=== PATIENT | male | born 1950 | race Caucasian/White ===

== ENCOUNTER 2024-05-28 18:12 | Inpatient (IN) | payer OTHER ==
[~2024-05-28] VITALS: Ht 188 cm; Wt 67.5 kg
[2024-05-28] MEDS ORDERED: MEMANTINE HCL10 MG PO (18:27)
[2024-05-28] MEDS ORDERED: RIVASTIGMINE TAR6 MG PO (18:27)
[2024-05-28] MEDS ORDERED: ZOLOFT 50MG50 MG PO (18:27)
[2024-05-28] MEDS ORDERED: Acetaminophen 325 MG TAB PO PRN (18:45)
[2024-05-28] MEDS ORDERED: Polyethylene Glycol 3350 Powder 17 GM PACKET PO PRN (18:45)
--- NOTE | 2024-05-28 18:50 | NUR ---
Received report from Marilyn JOSHI
[2024-05-28 19:00] VITALS: BP 127/80
[2024-05-28] MEDS ORDERED: Famotidine 20 MG TAB PO PRN (19:00)
[2024-05-28] MEDS ORDERED: Docusate Sodium 100 MG CAP PO PRN (19:00)
[2024-05-28] MEDS ORDERED: Acetaminophen 500 MG TAB PO SCH (19:42)
--- NOTE | 2024-05-28 20:00 | NUR ---
Pt is laying in a curled position in bed with his knees drawn up to his chest and head down. Remigio is at bedisde giving him drinks of water. reports she belives pt is wet and will required changing. Pt is resistive to care and requires 2 staff to help change and provide incontinet cares. Pt answers to own name but is unable to answer any other questions correctly. Pt is easily distracted when given something to hold on to. No skin breakdown notied, but there is a red area that is blanchable on coccyx. No abnormal findings with nursing assessment. Pt is repositioned and call light in reach of pt. Bed alarms on for safety. remaines at bedside when staff leaves room. Encouraged to let nurse know if any needs arise.
[2024-05-28] MEDS ORDERED: Rivastigmine 1.5 MG CAP PO SCH (21:00)
[2024-05-28] MEDS ORDERED: Ibuprofen 200 MG TAB PO SCH (22:42)
--- NOTE | 2024-05-29 06:13 | NUR ---
Pt has rested off and on through out the night. Staff has been in every 2 hours to turn and change pt due to incontinent. No pain noted during the shift. Call light in reach of pt.
--- NOTE | 2024-05-29 07:00 | NUR ---
RESUMED CARE FROM MADELYN HO.
[2024-05-29 07:42] VITALS: BP 134/69
[2024-05-29] MEDS ORDERED: Memantine 5 MG TAB PO SCH (09:00)
[2024-05-29] MEDS ORDERED: Sertraline 50 MG TAB PO SCH (09:00)
--- NOTE | 2024-05-29 09:10 | NUR ---
PATIENT SITTING IN RECLINER EATING BREAKFAST WITH NANABELLE NOGUERA. THIS RN COMPLETED AM ASSESSMENT AND PROVIDED AM MEDICATIONS CRUSHED IN APPLESAUCE. PATIENT PLEASANT, UNABLE TO ANSWER QUESTIONS APPROPRIATELY. MINIMALLY VERBAL. NEEDS MET. PATIENT REMAINS WITH ANNABELLE NOGUERA FINISHING BREAKFAST UPON DEPARTURE FROM ROOM.
[2024-05-29 09:18] LABS: BASO # 0.03 K/mm3 (0.02-0.10); EOS # 0.31 K/mm3 (0.04-0.40); EOS % 4.4 % (0.0-4.0); HEMATOCRIT 38.8 % (42.0-52.0); HEMOGLOBIN 12.9 g/dL (13.5-18.0); LYMPH# 1.81 K/mm3 (1.50-4.00); MEAN CELL VOLUME 95 fl (78-100); MEAN CORPUSCULAR HEMOGLOBIN 32 pg (27-31); MEAN CORPUSCULAR HGB CONC 33 g/dL (33-37); MEAN PLATELET VOLUME 9.4 fl (7.4-10.4); MONO # 0.43 K/mm3 (0.20-0.80); NEU # 4.09 K/mm3 (1.40-6.50); PLATELET COUNT 239 K/mm3 (130-400); RED CELL DISTRIBUTION WIDTH 12.9 % (11.5-14.5); WHITE BLOOD COUNT 7.1 K/mm3 (4.8-10.8)
[2024-05-29 09:44] LABS: ALBUMIN 3.6 g/dL (3.4-4.8)
[2024-05-29] MEDS ORDERED: Acetaminophen 500 MG TAB PO PRN (09:45)
[2024-05-29] MEDS ORDERED: Ibuprofen 200 MG TAB PO PRN (09:45)
[2024-05-29 09:46] LABS: CALCIUM 9.1 mg/dL (8.3-10.5)
[2024-05-29 09:47] LABS: TOTAL PROTEIN 6.8 g/dL (6.2-8.1)
[2024-05-29 09:49] LABS: TOTAL BILIRUBIN 0.4 mg/dL (0.2-1.2)
--- NOTE | 2024-05-29 14:09 | NUR ---
REPORT TO MADELYN PARRY.
--- NOTE | 2024-05-29 18:40 | NUR ---
Received report from Ching JOSHI
[2024-05-29 19:00] VITALS: BP 114/56
--- NOTE | 2024-05-29 19:00 | NUR ---
Pt laying in bed on his right side. Nursing assessment preformed with no abnormal findings. Pt remains confused but coppertive with staff during the assessment. Call light in reach of the pt. Bed alarms on for safety.
[2024-05-30 07:15] VITALS: BP 136/74; BP 148/73
--- NOTE | 2024-05-30 16:35 | NUR ---
PT HAS BEEN PLEASANTLY CONFUSED PER BASELINE TODAY. PT HAS A GOOD APPETITE AND IS EATING MOST OF HIS MEALS. PT TALKATIVE. HE SPEAKS 1-2 WORDS AT A TIME AND HAS DIFFICULTY FINDING HIS WORDS. COMMUNICATION IS NONSENSICAL AND HE IS UNALBE UNDERSTAND SIMPLE INSTRUCTIONS. PT IS INCONTINENT OF BOWEL AND BLADDER. PT IS REPOSITIONED EVERY COUPLE HOURS BUT IS ABLE TO SHIFT HIMSELF. PT REQUIRES FEEDING AND MAX ASSISTANCE WITH ALL ADLS. PT TRANSFERS WITH GAITBELT AND MAX ASSIST OF 2 PEOPLE. PT DOES NOT DO WELL WITH A WALKER DUE TO NOT UNDERSTANDING WHAT IT IS OR HOW TO USE IT EVEN WITH VERBAL QUEING. PT DOES NOT EXHIBIT SIGNS OF DISCOMFORT. SKIN WARM AND DRY. PTS CALLED EARLIER FOR AN UPDATE. SHE DOES NOT PLAN TO VISIT TODAY AND WOULD LIKE TO BE UPDATED WITH ANY CHANGES.
[2024-05-30 19:00] VITALS: BP 122/65
--- NOTE | 2024-05-30 21:09 | NUR ---
PT ALERT AND CONFUSED. GIVEN MEDS CRUSHED IN APPLESAUCE. LUNGS DIM DUE TO PT UNABLE TO FOLLOW DIRECTIONS OF DEEP BREATH. ABD SOFT AND NON TENDER. SKIN WARM AND DRY. DENIES PAIN. INCONTINENT TO BOWEL AND BLADDER.
[2024-05-31 07:30] VITALS: BP 166/100
--- NOTE | 2024-05-31 09:04 | NUR ---
PT ATE A CONTAINER OF APPLE SAUCE AND DRANK A CHOCOLATE ENSURE.
--- NOTE | 2024-05-31 14:29 | NUR ---
PT EVAL DONE BY BREANNE; SEE PATIENT PAPER CHART FOR NOTES
[2024-05-31 19:40] VITALS: BP 142/74
--- NOTE | 2024-05-31 22:41 | NUR ---
PT ALERT AND ORIENTED X0, PT INCONTINENT OF BOWEL AND URINE. PT DOES NOT DISPLAY ANY FORM OF PAIN. PT ASSESSED AND TOOK MEDICATIONS IN APPLESAUCE WITHOUT COMPLICATION. PT NOW RESTING IN BED WITH ALL FOUR SIDE RAILS UP FOR PT SAFETY. PT GIVEN SIPS OF WATER AFTER APPLESUACE.
[2024-06-01 07:23] VITALS: BP 116/55
[2024-06-01 19:00] VITALS: BP 105/74
--- NOTE | 2024-06-01 20:51 | NUR ---
This RN went to pull patients evening medication rivastigmine 6mg from the pyxis and it was not available. this RN notified provider JUNIE Avalos and she said that it was okay fro pt to miss tonight dose. This RN notified MADELYN Mak for restocking of med in AM.
--- NOTE | 2024-06-02 07:00 | NUR ---
RESUMED CARE FROM MADELYN HIKNLE.
[2024-06-02 07:15] VITALS: BP 125/61
[2024-06-02 07:49] LABS: BASO # 0.04 K/mm3 (0.02-0.10); EOS # 0.13 K/mm3 (0.04-0.40); EOS % 1.8 % (0.0-4.0); HEMATOCRIT 39.7 % (42.0-52.0); LYMPH# 1.45 K/mm3 (1.50-4.00); MEAN CELL VOLUME 95 fl (78-100); MEAN CORPUSCULAR HEMOGLOBIN 31 pg (27-31); MEAN CORPUSCULAR HGB CONC 33 g/dL (33-37); MEAN PLATELET VOLUME 9.1 fl (7.4-10.4); MONO # 0.51 K/mm3 (0.20-0.80); NEU # 4.71 K/mm3 (1.40-6.50); PLATELET COUNT 333 K/mm3 (130-400); RED BLOOD COUNT 4.19 M/mm3 (4.20-5.60); RED CELL DISTRIBUTION WIDTH 13.1 % (11.5-14.5); WHITE BLOOD COUNT 7.1 K/mm3 (4.8-10.8)
[2024-06-02 07:55] LABS: ALBUMIN 3.7 g/dL (3.4-4.8)
[2024-06-02 07:57] LABS: CALCIUM 9.4 mg/dL (8.3-10.5)
[2024-06-02 07:58] LABS: TOTAL PROTEIN 6.5 g/dL (6.2-8.1)
[2024-06-02 08:00] LABS: TOTAL BILIRUBIN 0.3 mg/dL (0.2-1.2)
--- NOTE | 2024-06-02 08:30 | NUR ---
PATIENT SITTING IN RECLINER UPON ARRIVAL TO ROOM, MOSES PCT IN ROOM FEEDING PATIENT BREAKFAST. ASSESSMENT COMPLETED. AM MEDICATIONS PROVIDED WHOLE IN APPLESAUCE. REMAINS WITH ANNABELLE LOPES EATING BREAKFAST UPON DEPARTURE FROM ROOM.
--- NOTE | 2024-06-02 10:15 | NUR ---
AT BEDSIDE, REPORTS PATIENT EATS LARGER PORTIONS AT HOME. THIS RN CALLED TO KITCHEN TO REQUEST DOUBLE PORTIONS OF MEALS MOVING FORWARD. KITCHEN AWARE.
--- NOTE | 2024-06-02 18:55 | NUR ---
REPORT TO ARIN.
[2024-06-02 19:46] VITALS: BP 116/61
[2024-06-03 07:23] VITALS: BP 128/61
--- NOTE | 2024-06-03 08:50 | NUR ---
PT LYING IN BED DURING ASSESMENT. PTS LUNGS ARE DIFFICULT TO ASSESS, PT DOESN'T FOLLWO COMMANDS, PT BREATHES SHALLOW. THIS NURSE DID NOT HEAR ANY ABNORMAL FINDINGS IN PTS UPPER AIRWAY. PTS SKIN IS WARM DRY AND INTACT. THIS NURSE AND CHASTITY, PCT CHANGED PTS BRIEF.
[2024-06-03 19:34] VITALS: BP 107/57
[2024-06-04 07:15] VITALS: BP 131/62
--- NOTE | 2024-06-04 13:48 | NUR ---
PTS FAMILY ARRIVED TODAY AT 1130 TO ASSIST PT WITH EATING. PT IS VERY ACTIVE AND WANTS TO GRAB HIS FOOD, PLATE AND SILVERWARE. HE WOULD PREFER TO GET UP AND WANDER AROUND WHEN SEATED. PTS FAMILY HAS BEEN EDUCATED ABOUT PT SAFETY AND FALL PREVENTION. PTS FAMILY VERBALIZES UNDERSTANDING.
--- NOTE | 2024-06-04 19:00 | NUR ---
Report received from Noel JOSHI.
[2024-06-04 19:41] VITALS: BP 114/41
--- NOTE | 2024-06-04 21:00 | NUR ---
Patient resting in bed with eyes open. When asked questions he doesn't speak. Does follow simple command for hand resource conservation manager and deep breaths during assessment. Resting diagonal in bed and incontinent of urine. CNAs repositioned and changed patient. See assessment. Respirations even nonlabored.
--- NOTE | 2024-06-05 05:01 | NUR ---
Patient has been resting with eyes closed. Respirations with ease.
[2024-06-05 07:20] VITALS: BP 113/71
[2024-06-05 19:00] VITALS: BP 110/51
--- NOTE | 2024-06-05 20:00 | NUR ---
Report received from Antonia JOSHI. Patient assisted to bed by [employer] via 2:1 assist. Incontinent of urine. Confused but cooperative. Pills taken whole but chews some. Denies pain when asked. Positioned for comfort. Moves freely about the bed. Bed alarm on. Call light in reach.
--- NOTE | 2024-06-06 05:32 | NUR ---
Rested well this shift. Repositioned and incontinent cares provided by staff.
--- NOTE | 2024-06-06 06:53 | NUR ---
Report to Diana JOSHI
--- NOTE | 2024-06-06 08:30 | NUR ---
Patient supervised/assist by PCT with breakfast and ate well. FLACC 07/05. Patient is alert but late stage dementia and not oriented. 2 person assisted patient to chair and dressed. Patient's feet elevated and provided an activity board to work on. Patient is incontinent of urine and changed prior to transfer to recliner.
[2024-06-06 10:19] VITALS: BP 117/62
--- NOTE | 2024-06-06 13:45 | NUR ---
Patient incontinent of urine. Changed and repositioned in bed. Patient offered water throughout the day and drank when offered. FLACC 07/05. Patient confused and unable to converse, aphasia.
--- NOTE | 2024-06-06 16:29 | NUR ---
Patient's arrived to visit around 1500. Patient ambulated in the hallway, 2P assist around 1545. FLACC 06/04. Patient up to bathroom and had a large bm.
[2024-06-06 19:00] VITALS: BP 157/73
--- NOTE | 2024-06-06 19:03 | NUR ---
Report given to SELENE Castaneda.
--- NOTE | 2024-06-06 20:00 | NUR ---
Report received from Diana JOSHI. Patient resting in bed. Moves about freely in bed and repositions self. Alert, confused. Speech intangible at times. Cooperative with assessment and cares. Denies pain when asked. Takes PO medications in applesauce, chews some but swallows mostly with drinks of water. Assessment completed. Staff in to provide incontinent cares PRN. Bed alarm on. Call light in reach.
--- NOTE | 2024-06-07 05:13 | NUR ---
Patient rested well compared to other nights. Staff in to reposition and provide incontinent cares as needed. Awake now and incontinent of urine. Talking to self in room.
--- NOTE | 2024-06-07 07:16 | NUR ---
Report to Shy JOSHI.
[2024-06-07 08:29] VITALS: BP 129/81
[2024-06-07 19:00] VITALS: BP 125/78
--- NOTE | 2024-06-07 19:27 | NUR ---
Report received from Shy JOSHI. Patient resting in supine in bed fidgiting about. Confused. Cooperative with assessment and taking medications. Pills given in applesauce, chews capsules, PRN Tylenol given crushed. Drinks water well when offered. Staff in to provide incontinent cares PRN. Bed alarm on. Call light in reach.
--- NOTE | 2024-06-08 07:03 | NUR ---
Report to Shy JOSHI.
[2024-06-08 07:17] VITALS: BP 112/69
[2024-06-08] MEDS ORDERED: Memantine 10 MG TAB PO SCH (09:00)
[2024-06-08 19:00] VITALS: BP 134/69
[2024-06-09 07:34] LABS: BASO # 0.04 K/mm3 (0.02-0.10); EOS % 1.5 % (0.0-4.0); HEMATOCRIT 41.7 % (42.0-52.0); HEMOGLOBIN 13.7 g/dL (13.5-18.0); LYMPH# 1.77 K/mm3 (1.50-4.00); MEAN CELL VOLUME 95 fl (78-100); MEAN CORPUSCULAR HEMOGLOBIN 31 pg (27-31); MEAN CORPUSCULAR HGB CONC 33 g/dL (33-37); MEAN PLATELET VOLUME 8.7 fl (7.4-10.4); NEU # 4.17 K/mm3 (1.40-6.50); PLATELET COUNT 379 K/mm3 (130-400); RED BLOOD COUNT 4.38 M/mm3 (4.20-5.60); RED CELL DISTRIBUTION WIDTH 13.4 % (11.5-14.5); WHITE BLOOD COUNT 6.8 K/mm3 (4.8-10.8)
[2024-06-09 07:39] LABS: CALCIUM 9.4 mg/dL (8.3-10.5)
[2024-06-09 07:40] LABS: ALBUMIN 4.1 g/dL (3.4-4.8)
[2024-06-09 07:42] LABS: TOTAL PROTEIN 7.6 g/dL (6.2-8.1)
[2024-06-09 07:43] LABS: TOTAL BILIRUBIN 0.4 mg/dL (0.2-1.2)
[2024-06-09 08:44] VITALS: BP 121/64
--- NOTE | 2024-06-09 16:04 | NUR ---
ASSISTED PT WITH FOR A WALK IN THE HALLWAY.
[2024-06-09 19:00] VITALS: BP 123/58
--- NOTE | 2024-06-09 20:05 | NUR ---
Report received from Kaila RN. Patient lying in bed on L side. Awake, fidgiting about. HS medications and PRN Tylenol taken well, crushed in applesauce. Patient confused. Assessment completed. Total cares by staff. Repositons self in bed. Bed alarm on. Call light in reach.
--- NOTE | 2024-06-10 05:55 | NUR ---
Rested well. Incontinent cares provided by staff PRN. Does not call or voice wants or needs. Cooperative with cares. Repositions self about in the bed. Bed alarm on. Call light in reach.
--- NOTE | 2024-06-10 06:58 | NUR ---
Report to Oksana JOSHI.
[2024-06-10 07:20] VITALS: BP 134/64
--- NOTE | 2024-06-10 19:26 | NUR ---
Report received from Oksana RN. Patient rests on L side in bed, curled up in position. Awake and fidgits. Confused, little verbalization and does not answer questions or follow commands. Assessment completed. Bottom reddened but blanchable skin intact. Staff in to provided incontinent cares PRN. Bed alarm on. Call light in reach.
[2024-06-10 19:45] VITALS: BP 125/66
--- NOTE | 2024-06-10 23:36 | NUR ---
Verbal order received for hydrocortisone cream 1% PRN to rash.
[2024-06-10] MEDS ORDERED: Hydrocortisone 1% Cream 30 GM TUBE TP PRN (23:45)
--- NOTE | 2024-06-11 06:15 | NUR ---
Rested well through the night. Fidgits at times. Staff in to repostion and provide incontinent cares. Bed alarm on. Call light in reach.
--- NOTE | 2024-06-11 07:00 | NUR ---
REPORT RECEIVED FROM SELENE SEALS
[2024-06-11 07:05] VITALS: BP 126/63
--- NOTE | 2024-06-11 07:13 | NUR ---
[facility]
--- NOTE | 2024-06-11 07:30 | NUR ---
PATIENT RESTING IN BED WITH EYES CLOSED, TV ON, EASILY AROUSABLE TO VOICE. PATIENT IS ALERT AND ORIENTED TO SELF ONLY. DENIES NEEDS AT THIS TIME. OFFERED WATER, PATIENT ACCEPTS. BED IN LOCKED, LOWEST POSTION. ALARM ON, CALL LIGHT WITHIN REACH
--- NOTE | 2024-06-11 08:45 | NUR ---
PATIENT UP TO CHAIR FOR MORNING MEAL. MEDICATIONS ADMINISTERED. PATIENT STATES "GOOD" WHEN ASKED ABOUT HOW HE WAS DOING TODAY. CHAIR ALARM ON, CALL LIGHT WITHIN REACH
--- NOTE | 2024-06-11 18:45 | NUR ---
REPORT RECEIVED FROM HANDY JOSHI
[2024-06-11 19:00] VITALS: BP 110/53
--- NOTE | 2024-06-11 20:30 | NUR ---
PT LAYING IN BED WITH THE TV ON. PT IS ABLE TO ANSWER TO HIS NAME BUT NO OTHER APPROPRIATE ANSWERS. PT IS INCONTIENT OF URINE, PAD IS CHANGED AND PERICARE PROVIDED. NO SIGNS OF PAIN NOTED. NO ABNORMAL FINDINGS WITH NURSING ASSESSMENT. CALL LIGHT IN REACH OF PT. BED ALARMS ON FOR SAFETY.
--- NOTE | 2024-06-12 06:56 | NUR ---
Report given to Lb JOSHI
--- NOTE | 2024-06-12 07:00 | NUR ---
REPORT RECEIVED FROM MADELYN HO
[2024-06-12 07:10] VITALS: BP 110/45
--- NOTE | 2024-06-12 08:15 | NUR ---
PATIENT UP TO CHIAR WITH MORNING MEAL, 1:1 WITH FEEDING AT THIS TIME. PATIENT IS PLEASENT AND ALERT, ORIENTED TO NAME ONLY. PATIENT UNABLE TO VERBALIZE PAIN, APPEARS RELAXED, EATING AT THIS TIME WITH OTHER NURSE IN ROOM. ASSESSMENT COMPLETE, MEDICAITONS ADMINISTERED. CHAIR ALARM ON, CALL LIGHT WITHIN REACH.
--- NOTE | 2024-06-12 13:45 | NUR ---
PATIENT AMBULATES IN THE HALLWAY WITH THIS NURSE AND FAMILY. PATIENT REQUIRES ENCOURAGMENT AND SAFETY REMINDERS WHEN AMBULATING.
--- NOTE | 2024-06-12 16:15 | NUR ---
PATIENT AMBULATES IN THE HALLWAY WITH THIS NURSE AND FAMILY AT THIS TIME. PATIENT REQUIRES ENCOURAGMENT AND SAFETY REMINDERS WHEN AMBULATING.
--- NOTE | 2024-06-12 18:52 | NUR ---
REPORT GIVEN MADELYN HO
--- NOTE | 2024-06-12 18:54 | NUR ---
Report recived from Precia RN
[2024-06-12 19:30] VITALS: BP 145/78
--- NOTE | 2024-06-12 20:15 | NUR ---
Pt was sitting in recliner, STRETCH MACHINE OPERATOR was assisting pt in getter ready for bed. Nurse and STRETCH MACHINE OPERATOR waslk pt in the murrell before bed. Tylenol was given to help pt rest tonight due to pt being so restless last night in bed. No abnormal findings in nursing assesment. Pt was assisted to bed, pericare was provided. Warm blanket was provided and call light was in reach.
--- NOTE | 2024-06-13 06:17 | NUR ---
Pt has rested more than the night before. Staff in room multipule times to change and reposition the pt. Call light remaines in reach of the pt.
--- NOTE | 2024-06-13 06:50 | NUR ---
Pt report given to Lb JOSHI
--- NOTE | 2024-06-13 07:00 | NUR ---
REPORT RECIEVED FROM MADELYN HO
[2024-06-13 07:14] VITALS: BP 109/60
--- NOTE | 2024-06-13 07:15 | NUR ---
PATIENT RESTING IN BED AT THIS TIME. BED IN LOWEST LOCKED POSTION, ALARM ON, CALL LIGHT WITHIN REACH.
--- NOTE | 2024-06-13 08:45 | NUR ---
PATIENT UP TO CHIAR AT THIS TIME, PLEASENT AND ALERT, ORIENTED TO NAME ONLY. PATIENT UNABLE TO VERBALIZE PAIN OR DISCOMFORT. OFFERED DRINKS OF WATER, PATIENT ACCEPTS. ASSESSMENT COMPLETE, CHAIR ALARM ON, CALL LIGHT WITHIN REACH.
--- NOTE | 2024-06-13 14:15 | NUR ---
PATIENT WALKS IN HALLWAY WITH THIS NURSE, , AND PCT AT THIS TIME.
--- NOTE | 2024-06-13 16:35 | NUR ---
PATIENT WALKS IN HALLWAY WITH THIS NURSE, PCT AND FAMIYL AT THIS TIME.
--- NOTE | 2024-06-13 18:51 | NUR ---
REPORT GIVEN TO MADELYN HINKLE
--- NOTE | 2024-06-13 19:18 | NUR ---
PT IN RECLINER, AWAKE, UNABLE TO MAKE NEEDS KNOWN D/T DEMENTIA DIAGNOSIS. PT TOLERATED ASSESSMENT. PT LEFT IN CHAIR ALARMED WITH CALL LIGHT IN REACH.
[2024-06-13 19:30] VITALS: BP 119/57
[2024-06-14 07:19] VITALS: BP 107/60
--- NOTE | 2024-06-14 07:30 | NUR ---
Report received and care assumed at this time. Pt resting in bed with eyes closed and no signs of distress or discomfort noted at this time. Call light in reach, bed alarm on.
--- NOTE | 2024-06-14 11:07 | NUR ---
Report given to Leslie Malone RN, and care transferred.
[2024-06-14 19:00] VITALS: BP 114/37
--- NOTE | 2024-06-14 20:50 | NUR ---
Pt laying sideways in bed with his head resting on the bedrail and his legs drapped over the other bedrail. Pt was repositioned in bed. Pt was changed into a hospital gown and incontinent pad was changed, pericare provided. Pt takes medication without any difficulties. Bed alarms on for safety. call light left in reach of pt.
--- NOTE | 2024-06-15 07:08 | NUR ---
Report given to Wave RN
[2024-06-15 07:17] VITALS: BP 111/63
--- NOTE | 2024-06-15 15:47 | NUR ---
PTS WOULD LIKE TO KNOW IF PT WILL HAVE MELATONIN AVAILABLE TONIGHT. SHE IS ALSO CONCERNED ABOUT HER HAVING THE FLU DUE TO 2 LOOSE STOOLS.
--- NOTE | 2024-06-15 15:54 | NUR ---
0800 PT RESTING IN BED. THIS NURSE ASCULTATED PTS LUNGS, CLEAR. PT IS ALERT, CALM AND RELAXED.
[2024-06-15 19:00] VITALS: BP 108/60
--- NOTE | 2024-06-15 19:20 | NUR ---
Received report from Wave RN
--- NOTE | 2024-06-15 20:15 | NUR ---
Pt is sitting in the recliner, he has been incontinent of stool. Pt is assited to bed by staff. Lyubov-care provided and pt is slightly combative when staff is assisting pt. Pt takes medication that are in applesauce. No pain noted when staff assiting pt. Bed alarms on for safety, call light in reach of pt.
[2024-06-16 06:13] LABS: BASO # 0.04 K/mm3 (0.02-0.10); EOS # 0.19 K/mm3 (0.04-0.40); HEMATOCRIT 35.3 % (42.0-52.0); HEMOGLOBIN 11.5 g/dL (13.5-18.0); LYMPH# 2.03 K/mm3 (1.50-4.00); MEAN CELL VOLUME 97 fl (78-100); MEAN CORPUSCULAR HEMOGLOBIN 32 pg (27-31); MEAN CORPUSCULAR HGB CONC 33 g/dL (33-37); MEAN PLATELET VOLUME 9.2 fl (7.4-10.4); MONO # 0.62 K/mm3 (0.20-0.80); PLATELET COUNT 253 K/mm3 (130-400); RED BLOOD COUNT 3.64 M/mm3 (4.20-5.60); RED CELL DISTRIBUTION WIDTH 13.8 % (11.5-14.5); WHITE BLOOD COUNT 6.4 K/mm3 (4.8-10.8)
--- NOTE | 2024-06-16 06:53 | NUR ---
REport given to wave RN
[2024-06-16 07:10] VITALS: BP 107/59
--- NOTE | 2024-06-16 11:00 | NUR ---
Spoke w/ Yolanda, pt's regarding discharge needs. has been in touch with [facility]/ [facility], regarding her desire to have the inhome care hours increased. They have been providing 14 hours per week. Spoke w/ her also about the recommendation for therapies thru home health. has chosen on her own to use [facility] for the home health needs for her . They currently get inhouse services thru them for her , the pt. Home health choice signed by . (Pt unable to sign due to cognitive issure). [facility] called to let them know pt's plan for discharge is 06/18/24 and they verify they are able to restart his inhome services(ie. respite care, bathing etc) as the [facility] auth is for one year starting 05/27/2024. As for pt's home health services [facility] stated that a new request form for services needs completed and sent to [facility] for those new services. Discussed this all with pt's and she verbalized understanding. Pt denies needing any DME equipemnt.
--- NOTE | 2024-06-16 13:50 | NUR ---
This nurse spoke w/ Valerie Galvan, at the [facility] and relayed message from that is hoping the number of inhome service hours can be increased. Valerie stated that that will be considered after the inhome evals are done for therapy services. Yolanda, pt's , told and understanding verbalized. [facility] fax number ([phone]) received from Valerie of where to fax [facility] request for services form. Giovana from [facility] to reach out to Yolanda to set up a time to begin the inhome services. Valerie to reach out from [facility] to set up a time for the Therapy service evals.
--- NOTE | 2024-06-16 17:14 | NUR ---
Request for Home health services faxed to [facility] at [phone] along with H & P, recent labs, Progress notes and PT/OT and nutrition notes.
--- NOTE | 2024-06-16 18:32 | NUR ---
Pts visited from approx 0900 to 1500. Pts attended swing bed meeting. Pt shows no signs of distress, he is verbal but often his words are nonsensical. Pt recieved a shower during hygine routine today. Pt walked the halls with CNAs, PT, and his 3-4 times today.
[2024-06-16 19:00] VITALS: BP 114/70
--- NOTE | 2024-06-16 20:15 | NUR ---
Report received from Oksana JOSHI. Patient rests on L side in position in bed. Awake and fidgiting about. Assessment completed and HS medications taken crushed in applesauce. PRN Tylenol given at this time. Remains incontinent of B&B with staff providing total cares PRN. Bed alarm on. Call light in reach.
--- NOTE | 2024-06-17 07:08 | NUR ---
Report to Wave RN
[2024-06-17 07:31] VITALS: BP 113/62
--- NOTE | 2024-06-17 12:30 | NUR ---
PCT DALE WENT IN TO PTS ROOM. DALE WITNESS PTS LOWERING PTS ELECTRIC FOOT REST DOWN TO THE FLOOR WITH PT SITTING ON THE FOOT REST. DALE NOTIFIED THIS NURSE. THIS NURSE ASSESSED PT. NO ABRASIONS OR BROKEN SKIN. NO CHANGES IN MENTAL STATUS. PTS CONFIRMS WITH THIS NURSE AND PCT THAT SHE LOWERED THE FOOT REST TO THE FLOOR, BECUASE SHE DIDN'T KNOW WHAT ELSE TO DO ONCE HE HAD GOTTEN THAT FAR OUT OF THE CHAIR. THIS NURSE EDUCATED PTS TO ALLWAYS PRESS THE CALL LIGHT IN A SITUATION SHE IS UNAWARE OF WHAT TO DO. PTS VERBALIZED UNDERSTANDING. PT RE SEATED IN CHAIR, CHAIR ALARM ON.
[2024-06-17 19:00] VITALS: BP 107/61
--- NOTE | 2024-06-17 19:07 | NUR ---
THIS NURSE ASSESSED PT THIS AM. SEE ASSESSMENT. PTS AFFECT HASN'T CHANGED FROM TODAY'S MORNING REPORT. PT WALKED THE HALLS WITH HIS AND PCT. PT IS INCONTINENT OF BOWEL AND BLADDER. 1:1 EATING. GAVE REPORT TO MADELYN SEALS
--- NOTE | 2024-06-17 20:10 | NUR ---
Report received from Oksana JOSHI. Rests in bed on L side with eyes closed. No signs of distress. Awakens easily for HS medications taken crushed in applesauce. Drinks water readily when offered. Assessment completed. Bed alarm on. Call light in reach.
--- NOTE | 2024-06-18 06:05 | NUR ---
Rested well. Staff in to provide incontinent cares and turns PRN.
--- NOTE | 2024-06-18 07:05 | NUR ---
Report to Kaila JOSHI.
[2024-06-18 08:19] VITALS: BP 108/49
--- NOTE | 2024-06-18 12:14 | NUR ---
Discharge summary and discharge orders faxed to [facility] at [phone].
== END 2024-06-18 11:44 | disposition home or self-care (01) | DRG 947 ==
LOC: MED/SURG 18:12
PROVIDERS: ADMIT Family Medicine
DX: R53.81 Other malaise (principal); J18.9 Pneumonia, unspecified organism; E87.1 Hypo-osmolality and hyponatremia; Z66 Do not resuscitate; Z91.81 History of falling; Z87.891 Personal history of nicotine dependence; F32.A Depression, unspecified; G30.9 Alzheimer's disease, unspecified; F02.80 Dementia in other diseases classified elsewhere, unspecified severity, without behavioral disturbance, psychotic disturbance, mood disturbance, and anxiety; E83.51 Hypocalcemia; D64.9 Anemia, unspecified; D69.6 Thrombocytopenia, unspecified; Z79.899 Other long term (current) drug therapy